=== PATIENT | male | born 1965 | race Caucasian/White ===

== ENCOUNTER 2018-02-05 12:06 | Inpatient (IN) | payer MEDICAID ==
[~2018-02-05] VITALS: Ht 193 cm; Wt 56.6 kg
[2018-02-05 12:49] LABS: Basophils # (auto) 0.1 uL; Basophils % (auto) 1.1 % (0.0-2.0); Eosinophils # (auto) 0.4 uL; Eosinophils % (auto) 6.4 % (0.0-7.0); Hematocrit 32.1 % (41.0-53.0); Lymphocytes # (auto) 1.6 uL; Lymphocytes % (auto) 27.3 % (10.0-50.0); Mean Corpuscular Hemoglobin 31.9 pg (28.0-32.0); Mean Corpuscular Hgb Conc. 34.4 g/dL (32.0-36.0); Mean Corpuscular Volume 92.9 fL (80.0-100.0); Monocytes # (auto) 0.6 uL; Monocytes % (auto) 9.7 % (0.0-12.0); Neutrophils # (auto) 3.2 uL; Neutrophils % (auto) 55.5 % (37.0-80.0); Nucleated Red Blood Cells % 0.1 %; Platelet Count (auto) 173 10^3/uL (140-450); Red Blood Cells 3.45 10^6/uL (4.5-5.90); White Blood Cell 5.8 10^3/uL (4.4-10.8)
[2018-02-05 13:12] LABS: Albumin 3.9 g/dL (3.4-5.0); BUN/Creatinine Ratio 16.8; Calcium 8.7 mg/dL (8.5-10.1); Potassium 4.7 mmol/L (3.5-5.1)
[2018-02-05 13:14] LABS: Bilirubin, Total 0.4 mg/dL (0.2-1.0)
[2018-02-05 14:13] LABS: Urine Bacteria NONE SEEN /hpf (None Seen); Urine Blood Negative /uL (Negative); Urine Specific Gravity 1.011 (1.001-1.035); Urine WBC <1 /hpf (0 - 3)
[2018-02-05] MEDS ORDERED: LORazepam 0.5 MG TAB PO PRN (14:30)
[2018-02-05] MEDS ORDERED: MORPHINE SULF INJ 2 MG/ML SYRINGE 1ML IV PRN (14:30)
[2018-02-05] MEDS ORDERED: PIPERACILLIN-TAZOB 3.375GM 100 ML IV ONE (14:30)
[2018-02-05] MEDS ORDERED: PROMETHAZINE HCL 25 MG/ML 1ML IV PRN (14:30)
[2018-02-05] MEDS ORDERED: NITROGLYCERIN 0.4 MG SL TAB SL PRN (14:30)
[2018-02-05] MEDS ORDERED: TEMAZEPAM 15 MG CAP PO PRN (14:30)
[2018-02-05] MEDS ORDERED: traMADol HCL 50 MG TAB PO PRN (14:30)
[2018-02-05] MEDS ORDERED: ACETAMINOPHEN 500 MG TAB PO PRN (14:30)
[2018-02-05] MEDS ORDERED: LACTULOSE 20Gm/30ML SOLN PO PRN (14:30)
[2018-02-05] MEDS ORDERED: DEXTROSE (50%) 50ML SYRG IV PRN (14:30)
[2018-02-05 14:38] LABS: INR 0.93 (0.9-1.15)
[2018-02-05] MEDS: SODIUM CHLORIDE 0.9% 1,000 ML IV SCH (15:11)
[2018-02-05] MEDS: MORPHINE SULFATE 4 MG/ML SYR/VIAL IV PRN ×2 (15:19→20:24)
[2018-02-05 16:00] VITALS: BP 153/92
[2018-02-05] MEDS ORDERED: LINEZOLID 600MG/300ML 300 ML IV ONE (16:00)
[2018-02-05] MEDS: InsuLIN REG 1unit/0.01ml Soln (100units/ml) SC SCH ×2 (17:00→22:15)
[2018-02-05] MEDS ORDERED: SIMV-13 PO (17:19)
[2018-02-05] MEDS ORDERED: METF-371 PO (17:19)
[2018-02-05] MEDS ORDERED: MORP60TA25 PO (17:19)
[2018-02-05] MEDS ORDERED: SILD20TA18 PO (17:19)
[2018-02-05] MEDS ORDERED: CHOL1TAB42 PO (17:19)
[2018-02-05] MEDS ORDERED: DOCU-94 PO (17:19)
[2018-02-05] MEDS ORDERED: MELO1TAB56 PO (17:19)
[2018-02-05] MEDS ORDERED: GLYB5TAB8 PO (17:19)
[2018-02-05] MEDS ORDERED: HYDR-4683 PO (17:19)
[2018-02-05] MEDS ORDERED: GABA-339 PO (17:19)
[2018-02-05] MEDS: ACCU-CHEK COMFORT CURVE STRIP VI SCH ×2 (18:30→22:13)
[2018-02-05 21:08] VITALS: BP 133/88
[2018-02-06] MEDS: PIPERACILLIN-TAZOB 3.375GM 100 ML IV SCH ×3 (00:15→11:14)
[2018-02-06] MEDS: SODIUM CHLORIDE 0.9% 1,000 ML IV SCH ×2 (00:23→10:23)
[2018-02-06] MEDS: MORPHINE SULFATE 4 MG/ML SYR/VIAL IV PRN ×2 (00:31→04:40)
[2018-02-06 05:06] VITALS: BP 130/88
[2018-02-06] MEDS ORDERED: LINEZOLID 600MG/300ML 300 ML IV SCH (06:00)
[2018-02-06] MEDS: InsuLIN REG 1unit/0.01ml Soln (100units/ml) SC SCH ×4 (06:50→21:53)
[2018-02-06] MEDS: ACCU-CHEK COMFORT CURVE STRIP VI SCH ×4 (06:51→21:53)
[2018-02-06 07:04] LABS: Basophils # (auto) 0.1 uL; Basophils % (auto) 1.3 % (0.0-2.0); Eosinophils # (auto) 0.4 uL; Eosinophils % (auto) 6.8 % (0.0-7.0); Hematocrit 34.3 % (41.0-53.0); Hemoglobin 11.5 g/dL (13.5-17.5); Lymphocytes # (auto) 1.5 uL; Lymphocytes % (auto) 26.4 % (10.0-50.0); Mean Corpuscular Hemoglobin 30.9 pg (28.0-32.0); Mean Corpuscular Hgb Conc. 33.5 g/dL (32.0-36.0); Mean Corpuscular Volume 92.3 fL (80.0-100.0); Monocytes # (auto) 0.5 uL; Monocytes % (auto) 9.5 % (0.0-12.0); Neutrophils # (auto) 3.2 uL; Platelet Count (auto) 186 10^3/uL (140-450); Red Blood Cells 3.71 10^6/uL (4.5-5.90); Red Cell Distribution Width 13.2 % (11.8-14.3); White Blood Cell 5.7 10^3/uL (4.4-10.8)
[2018-02-06 07:13] LABS: Albumin 3.9 g/dL (3.4-5.0); BUN/Creatinine Ratio 15.9; Bilirubin, Total 0.6 mg/dL (0.2-1.0); Calcium 8.9 mg/dL (8.5-10.1); Potassium 4.7 mmol/L (3.5-5.1)
[2018-02-06 08:40] VITALS: BP 132/83
[2018-02-06] MEDS: ENOXAPARIN SOD 40 MG/0.4 ML SYRINGE SC SCH (09:24)
[2018-02-06] MEDS ORDERED: PANTOPRAZOLE 40 MG TAB PO SCH (10:00)
[2018-02-06] MEDS: HYDROcodone-ACET 10/325MG TAB PO PRN ×2 (11:09→18:02)
[2018-02-06] MEDS ORDERED: FAMO-12 PO (11:59)
[2018-02-06] MEDS ORDERED: HYDR-531 PO (11:59)
[2018-02-06] MEDS ORDERED: MORPHINE SULF 15mg ER tab PO ONE (12:15)
[2018-02-06 12:30] VITALS: BP 137/85
[2018-02-06] MEDS: GABAPENTIN 400 MG CAP PO SCH ×2 (13:58→21:53)
[2018-02-06] MEDS: CLINDAMYCIN 600MG IV 50 ML IV SCH ×2 (15:27→21:52)
[2018-02-06] MEDS: LEVOFLOXACIN 750MG 150 ML IV SCH (16:26)
[2018-02-06 16:30] VITALS: BP 134/81
[2018-02-06 21:41] VITALS: BP 124/81
[2018-02-06] MEDS: MORPHINE SULF 15mg ER tab PO SCH (21:52)
[2018-02-06] MEDS: FAMOTIDINE 20 MG TAB PO SCH (21:53)
[2018-02-06] MEDS: ASCORBIC ACID 500 MG TAB PO SCH (21:53)
[2018-02-07 04:31] VITALS: BP 144/75
[2018-02-07] MEDS: GABAPENTIN 400 MG CAP PO SCH ×3 (05:33→21:23)
[2018-02-07] MEDS: CLINDAMYCIN 600MG IV 50 ML IV SCH ×3 (05:33→21:23)
[2018-02-07] MEDS: ACCU-CHEK COMFORT CURVE STRIP VI SCH ×4 (06:15→21:26)
[2018-02-07] MEDS: InsuLIN REG 1unit/0.01ml Soln (100units/ml) SC SCH ×5 (06:20→21:32)
[2018-02-07] MEDS: HYDROcodone-ACET 10/325MG TAB PO PRN ×2 (08:49→16:08)
[2018-02-07 09:22] VITALS: BP 124/71
[2018-02-07] MEDS: CHOLECALCIFEROL (VITD3) 1,000 UNIT TAB PO SCH (10:50)
[2018-02-07] MEDS: LEVOFLOXACIN 750MG 150 ML IV SCH (10:51)
[2018-02-07] MEDS: ASCORBIC ACID 500 MG TAB PO SCH ×2 (10:51→21:23)
[2018-02-07] MEDS: MORPHINE SULF 15mg ER tab PO SCH ×2 (10:51→21:24)
[2018-02-07] MEDS: MULTIPLE VITAMINS W/ MINERALS TAB PO SCH (10:51)
[2018-02-07] MEDS: ENOXAPARIN SOD 40 MG/0.4 ML SYRINGE SC SCH (10:51)
[2018-02-07 12:30] VITALS: BP 126/66
[2018-02-07 16:34] VITALS: BP 138/81
[2018-02-07] MEDS: glyBURIDE 5 MG TAB PO SCH (17:53)
[2018-02-07] MEDS: metFORMIN HYDROCHLORIDE 500 MG TAB PO SCH (17:54)
[2018-02-07] MEDS: FAMOTIDINE 20 MG TAB PO SCH (21:24)
[2018-02-07 22:00] VITALS: BP 114/76
[2018-02-08 05:03] VITALS: BP 117/72
[2018-02-08] MEDS: glyBURIDE 5 MG TAB PO SCH (06:18)
[2018-02-08] MEDS: GABAPENTIN 400 MG CAP PO SCH (06:19)
[2018-02-08] MEDS: metFORMIN HYDROCHLORIDE 500 MG TAB PO SCH (06:19)
[2018-02-08] MEDS: ACCU-CHEK COMFORT CURVE STRIP VI SCH ×2 (06:33→11:45)
[2018-02-08] MEDS: CLINDAMYCIN 600MG IV 50 ML IV SCH (06:34)
[2018-02-08] MEDS: HYDROcodone-ACET 10/325MG TAB PO PRN (06:34)
[2018-02-08] MEDS: InsuLIN REG 1unit/0.01ml Soln (100units/ml) SC SCH ×2 (06:34→11:30)
[2018-02-08 08:00] VITALS: BP 129/93
[2018-02-08] MEDS: LEVOFLOXACIN 750MG 150 ML IV SCH (09:17)
[2018-02-08] MEDS: CHOLECALCIFEROL (VITD3) 1,000 UNIT TAB PO SCH (09:17)
[2018-02-08] MEDS: ENOXAPARIN SOD 40 MG/0.4 ML SYRINGE SC SCH (09:17)
[2018-02-08] MEDS: MULTIPLE VITAMINS W/ MINERALS TAB PO SCH (09:18)
[2018-02-08] MEDS: MORPHINE SULF 15mg ER tab PO SCH (09:18)
[2018-02-08] MEDS: ASCORBIC ACID 500 MG TAB PO SCH (09:18)
[2018-02-08] MEDS ORDERED: DOXY-216 PO (11:27)
[2018-02-08] MEDS ORDERED: LEVO750T64 PO (11:27)
[2018-02-08 12:00] VITALS: BP 125/79
[2018-02-08 12:13] VITALS: BP 125/79
== END 2018-02-08 14:22 | disposition home or self-care (01) | DRG 349 ==
LOC: ER 12:06 → TELE 12:07 → TELE-EAST 15:29 → EAST 02-07 09:24
PROVIDERS: ADMIT Internal Medicine; ATTEND Internal Medicine
DX: T87.44 Infection of amputation stump, left lower extremity (principal); E11.22 Type 2 diabetes mellitus with diabetic chronic kidney disease; I96 Gangrene, not elsewhere classified; E11.52 Type 2 diabetes mellitus with diabetic peripheral angiopathy with gangrene; E11.42 Type 2 diabetes mellitus with diabetic polyneuropathy; T87.54 Necrosis of amputation stump, left lower extremity; E11.628 Type 2 diabetes mellitus with other skin complications; L03.032 Cellulitis of left toe; D63.8 Anemia in other chronic diseases classified elsewhere; E78.5 Hyperlipidemia, unspecified; E11.65 Type 2 diabetes mellitus with hyperglycemia; I12.9 Hypertensive chronic kidney disease with stage 1 through stage 4 chronic kidney disease, or unspecified chronic kidney disease; L03.116 Cellulitis of left lower limb; N18.2 Chronic kidney disease, stage 2 (mild); Y83.8 Other surgical procedures as the cause of abnormal reaction of the patient, or of later complication, without mention of misadventure at the time of the procedure; Z22.322 Carrier or suspected carrier of Methicillin resistant Staphylococcus aureus; Z89.422 Acquired absence of other left toe(s); Z79.4 Long term (current) use of insulin; Z79.899 Other long term (current) drug therapy; Z82.49 Family history of ischemic heart disease and other diseases of the circulatory system; Z83.3 Family history of diabetes mellitus; Y92.89 Other specified places as the place of occurrence of the external cause
CPT/HCPCS: 36415; 71045; 73620; 73718; 80053; 80061; 81001; 82962; 83036; 83605; 85025; 85610; 85652; 85730; 87040; 87081; 93005; 93926; 96365; 96372; J1815; J1956; J2543; J3490

== ENCOUNTER 2018-02-12 10:13 | Day surgery (SDC) | payer MEDICAID ==
[2018-02-11 12:03] LABS: Basophils # (auto) 0.1 uL; Basophils % (auto) 0.9 % (0.0-2.0); Eosinophils # (auto) 0.3 uL; Eosinophils % (auto) 4.9 % (0.0-7.0); Hematocrit 38.1 % (41.0-53.0); Hemoglobin 12.9 g/dL (13.5-17.5); Lymphocytes # (auto) 1.9 uL; Lymphocytes % (auto) 27.3 % (10.0-50.0); Mean Corpuscular Hemoglobin 31.2 pg (28.0-32.0); Mean Corpuscular Hgb Conc. 33.9 g/dL (32.0-36.0); Mean Corpuscular Volume 91.9 fL (80.0-100.0); Monocytes # (auto) 0.6 uL; Monocytes % (auto) 8.3 % (0.0-12.0); Neutrophils # (auto) 4.2 uL; Neutrophils % (auto) 58.6 % (37.0-80.0); Nucleated Red Blood Cells % 0.1 %; Platelet Count (auto) 229 10^3/uL (140-450); Red Blood Cells 4.15 10^6/uL (4.5-5.90); Red Cell Distribution Width 12.7 % (11.8-14.3); White Blood Cell 7.1 10^3/uL (4.4-10.8)
[2018-02-11 12:22] LABS: Albumin 4.5 g/dL (3.4-5.0); BUN/Creatinine Ratio 23.6; Bilirubin, Total 0.4 mg/dL (0.2-1.0); Calcium 9.7 mg/dL (8.5-10.1); Potassium 4.8 mmol/L (3.5-5.1); Total Protein 8.1 g/dL (6.4-8.2)
[2018-02-11 12:26] LABS: INR 0.93 (0.9-1.15); Partial Thromboplastin Time 36.6 sec (23.78-33.04)
[~2018-02-12] VITALS: Ht 193 cm; Wt 85.7 kg
[~2018-02-12 10:13] MED LIST: CHOL1TAB42 PO; DOCU-94 PO; DOXY-216 PO; FAMO-12 PO; GABA-339 PO; GLYB5TAB8 PO; HYDR-531 PO; LEVO750T64 PO; MELO1TAB56 PO; METF-371 PO; MORP60TA25 PO; SILD20TA18 PO; SIMV-13 PO
[2018-02-12] MEDS ORDERED: BUPIVACAINE 0.75% INJ 10ML MPV SDV IJ ONE (13:46)
[2018-02-12] MEDS ORDERED: fentaNYL CITRATE 100 MCG/2 ML VL ONE (13:57)
[2018-02-12] MEDS ORDERED: LIDOCAINE 2% (LOCAL ANESTH.) PF 5ml SDV ONE (13:58)
[2018-02-12] MEDS ORDERED: PROPOFOL 10 MG/ML 20 ML IV ONE (13:58)
[2018-02-12] MEDS ORDERED: METOCLOPRAMIDE HCL 5MG/ml INJ 2ml VIAL ONE (13:58)
[2018-02-12] MEDS ORDERED: ONDANSETRON HCL 4 MG/2 ML VIAL ONE (13:58)
[2018-02-12] MEDS ORDERED: ceFAZolin 1GM 2 GM in D5W 5% 100 ML IV ONE (14:00)
[2018-02-12] MEDS ORDERED: MIDAZOLAM HCL 1MG/1ML-2 ML VIAL ONE (14:05)
[2018-02-12] MEDS ORDERED: ceFAZolin 1GM VL ONE ×2 (14:06→14:29)
[2018-02-12] MEDS ORDERED: ONDANSETRON HCL 4 MG/2 ML VIAL IV ONE (15:00)
[2018-02-12] MEDS ORDERED: NALOXONE HCL 0.4 MG/ML VIAL IV PRN (15:00)
[2018-02-12] MEDS ORDERED: HYDROmorphone HCL 2 MG/ML VL IV PRN (15:00)
[2018-02-12] MEDS ORDERED: hydrALAZINE HCL 20 MG/ML VL IV PRN (15:00)
[2018-02-12 15:27] VITALS: BP 127/83
== END 2018-02-12 15:36 | disposition home or self-care (01) ==
LOC: SUR 10:13
PROVIDERS: ATTEND Podiatrist Foot & Ankle Surgery
DX: I96 Gangrene, not elsewhere classified (principal); G62.9 Polyneuropathy, unspecified; E11.9 Type 2 diabetes mellitus without complications; D64.9 Anemia, unspecified; K21.9 Gastro-esophageal reflux disease without esophagitis; Z98.890 Other specified postprocedural states; Z82.49 Family history of ischemic heart disease and other diseases of the circulatory system; Z83.3 Family history of diabetes mellitus
CPT/HCPCS: 28825; J2765; J3010; 36415; 80053; 82962; 85025; 85610; 85730; J0690; J2001; J2250; J2405; J2704; J3490; J7060